=== PATIENT | female | born 1990 | race Caucasian/White ===

== ENCOUNTER 2018-09-07 12:21 | Inpatient (IN) | payer MEDICAID ==
[2018-09-07 13:12] LABS: PLATELET COUNT 383 10^3/uL (150-400)
--- NOTE | 2018-09-07 13:33 | EDPHY ---
H & P Stated Complaint: Depression, evelyn, passive thoughts of si Time Seen by Provider: 09/07/18 13:00 HPI/ROS: CHIEF COMPLAINT: Depression, suicidal thoughts, increasing insomnia history of bipolar mood disorder HISTORY OF PRESENT ILLNESS: Patient has a history of bipolar mood disorder. She has been off medications for the past year. She is currently not under the care of a therapist. She had been on Depakote, trazodone and Ambien. She presents to the ED with increasing suicidal thoughts, depression and insomnia. The patient does report symptoms of evelyn. She does not feel as if she can contract for safety and does feel she needs to be admitted for psychiatric stabilization. The patient denies any acute medical complaints. She reports occasional marijuana use but denies additional drug or alcohol consumption. REVIEW OF SYSTEMS: A comprehensive 10 point review of systems is otherwise negative aside from elements mentioned in the history of present illness. Source: Patient Exam Limitations: No limitations - Personal History LMP (Females 10-55): Hysterectomy Current Tetanus Diphtheria and Acellular Pertussis (TDAP): Yes Tetanus Vaccine Date: 2008 - Medical/Surgical History Hx Asthma: Yes Hx Chronic Respiratory Disease: No Hx Diabetes: No Hx Cardiac Disease: No Hx Renal Disease: No Hx Cirrhosis: No Hx Alcoholism: No Hx HIV/AIDS: No Hx Splenectomy or Spleen Trauma: No Other PMH: MEDICAL- BIPOLAR, SUICIDE ATTEMPT 07/21, OD ON COCAINE AND ADDERAL 05/13 AND "HAD TO BE RESUCITATED 4X'S". SURIGCAL- CSECTION - Social History Smoking Status: Current every day smoker - Physical Exam Exam: General Appearance: Alert, no distress Eyes: Pupils equal and round no pallor or injection ENT, Mouth: Mucous membranes moist Respiratory: There are no retractions, lungs are clear to auscultation Cardiovascular: Regular rate and rhythm Gastrointestinal: Abdomen is soft and nontender, no masses, bowel sounds normal Neurological: A&O, normal motor function, normal sensory exam, normal cranial nerves Skin: Warm and dry, no rashes Musculoskeletal: Neck is supple nontender Extremities: symmetrical, full range of motion Psychiatric: Cooperative, normal thought process, endorses suicidal ideation, endorses depression. Constitutional: Initial Vital Signs Temperature (C) 36.9 C 09/07/18 12:23 Heart Rate 99 09/07/18 12:23 Respiratory Rate 16 05/01/19 12:23 Blood Pressure 125/76 H 09/07/18 12:23 O2 Sat (%) 98 09/07/18 12:23 O2 Delivery Mode Room Air Allergies/Adverse Reactions: lamotrigine [From Lamictal] Allergy (Verified 09/07/18 12:29) venom-honey bee [bee venom (honey bee)] Allergy (Verified 04/06/13 17:38) Home Medications: Medication Instructions Recorded Willoughby Carbonate [Willoughby 300 mg PO HS 04/06/13 Carbonate Cap 300 mg (RX)] Willoughby Carbonate [Willoughby 600 mg PO DAILY 04/06/13 Carbonate Cap 300 mg (RX)] Zolpidem Tartrate [Ambien 5MG (RX)] 10 mg PO HS PRN 04/06/13 Hydrocodone/APAP 5/325 [[place] 1 - 2 tab PO Q4PRN #20 tab 08/05/13 5/325 (*)] Hydrocodone/APAP 5/325 [[place] 1 - 2 each PO Q4-6PRN PRN #20 tab 08/15/13 5/325] Metformin HCl 08/15/13 Zyprexa 08/15/13 Medical Decision Making - Diagnostics Imaging Results: Pelvic ultrasound: Intrauterine is noted. Too early to detect cardiac activity which is typically not seen until 7 weeks. ED Course/Re-evaluation: Patient presents to the ED with worsening symptoms of depression, evelyn and suicidal ideation. The patient was noted to be incidentally . An IUP was confirmed on pelvic ultrasound. The patient was medically cleared for psychiatric evaluation. She was placed on a 72 hr mental health hold. The patient was evaluated by Mental Health and they are making arrangements for inpatient psychiatric hospitalization at [facility]. The patient has remained common cooperative throughout her stay in the emergency department. Differential Diagnosis: Differential diagnosis considered includes depression, bipolar mood disorder, suicidal ideation - Data Points Laboratory Results: Laboratory Results 09/07/18 12:45 09/07/18 12:45 09/07/18 09/07/18 09/07/18 12:45 12:45 12:45 WBC RBC Hgb Hct MCV MCH MCHC RDW Plt Count MPV Neut % (Auto) Lymph % (Auto) Clare % (Auto) Eos % (Auto) Baso % (Auto) Nucleat RBC Rel Count Absolute Neuts (auto) Absolute Lymphs (auto) Absolute Monos (auto) Absolute Eos (auto) Absolute Basos (auto) Absolute Nucleated RBC Immature Gran % Immature Gran # Sodium Potassium Chloride Carbon Dioxide Anion Gap BUN Creatinine Estimated GFR Glucose Calcium Beta HCG, Qual POSITIVE Beta HCG, Quant 4183.70 mIU/mL H mIU/mL (0.00-4.83) Urine Opiates Screen NEGATIVE (NEGATIVE) Urine Barbiturates NEGATIVE (NEGATIVE) Ur Phencyclidine Scrn NEGATIVE (NEGATIVE) Ur Amphetamine Screen NEGATIVE (NEGATIVE) U Benzodiazepines Scrn NEGATIVE (NEGATIVE) Urine Cocaine Screen NEGATIVE (NEGATIVE) U Marijuana (THC) Screen NON-NEGATIVE H (NEGATIVE) 09/07/18 09/07/18 12:45 12:45 WBC 8.98 10^3/uL 10^3/uL (3.80-9.50) RBC 4.76 10^6/uL 10^6/uL (4.18-5.33) Hgb 14.1 g/dL g/dL (12.6-16.3) Hct 42.6 % % (38.0-47.0) MCV 89.5 fL fL (81.5-99.8) MCH 29.6 pg pg (27.9-34.1) MCHC 33.1 g/dL g/dL (32.4-36.7) RDW 13.5 % % (11.5-15.2) Plt Count 383 10^3/uL 10^3/uL (150-400) MPV 10.1 fL fL (8.7-11.7) Neut % (Auto) 53.0 % % (39.3-74.2) Lymph % (Auto) 37.9 % % (15.0-45.0) Clare % (Auto) 5.5 % % (4.5-13.0) Eos % (Auto) 2.8 % % (0.6-7.6) Baso % (Auto) 0.4 % % (0.3-1.7) Nucleat RBC Rel Count 0.0 % % (0.0-0.2) Absolute Neuts (auto) 4.76 10^3/uL 10^3/uL (1.70-6.50) Absolute Lymphs (auto) 3.40 10^3/uL H 10^3/uL (1.00-3.00) Absolute Monos (auto) 0.49 10^3/uL 10^3/uL (0.30-0.80) Absolute Eos (auto) 0.25 10^3/uL 10^3/uL (0.03-0.40) Absolute Basos (auto) 0.04 10^3/uL 10^3/uL (0.02-0.10) Absolute Nucleated RBC 0.00 10^3/uL 10^3/uL (0-0.01) Immature Gran % 0.4 % % (0.0-1.1) Immature Gran # 0.04 10^3/uL 10^3/uL (0.00-0.10) Sodium 140 mEq/L mEq/L (135-145) Potassium 4.0 mEq/L mEq/L (3.5-5.2) Chloride 108 mEq/L mEq/L (97-110) Carbon Dioxide 23 mEq/l mEq/l (22-31) Anion Gap 9 mEq/L mEq/L (6-14) BUN 10 mg/dL mg/dL (7-23) Creatinine 0.6 mg/dL mg/dL (0.6-1.0) Estimated GFR > 60 Glucose 100 mg/dL mg/dL (70-100) Calcium 9.3 mg/dL mg/dL (8.5-10.4) Beta HCG, Qual Beta HCG, Quant Urine Opiates Screen Urine Barbiturates Ur Phencyclidine Scrn Ur Amphetamine Screen U Benzodiazepines Scrn Urine Cocaine Screen U Marijuana (THC) Screen Departure - Departure Disposition: [facility] IP Clinical Impression: Suicidal ideation, Intrauterine Condition: Good Referrals: NONE *PRIMARY CARE P,. [Primary Care Provider] - As per Instructions
--- NOTE | 2018-09-07 16:27 | ASMTTCLDSP ---
TLC Discharge Disposition Disposition: Answers: Admit Disposition Notes: Notes: In consultation with [facility] ED Srinath Sosa MD, and on-call clinician, Cristi Suarez APN both concurred that pt appears to meet 27-65 criteria requiring psychiatric hospitalization as pt appears to be at risk of harm to self due to a mental illness condition. Pt was read the Patient Rights and Responsibilities Statement on 09/07/18 at 15:50, original placed on chart, and was given photocopy of Rights. Pt (signed the Patient Rights. Pt was given the 3N prohibited belongings list while in the ED. Was patient given the Answers: Yes Inpatient Behavioral Health Prohibited Belongings List while in the ED? For inpatient Cristi Suarez APN admission, the following psychiatrist agreed to accept patient for admission to Behavioral Health ([facility]): Type of Hold: Answers: M1/72-hour Hold Hold initiated by: Answers: ED Physician Date Signed: 09/07/2018 04:26 PM Electronically Signed By:Sherie Snell
--- NOTE | 2018-09-07 16:40 | ASMTTLCEVL ---
TLC Evaluation - Basic Information Evaluation Start Date and 09/07/2018 02:00 PM Time Hospital Status Answers: M1 Hold 72-hr M1 Hold Start Date 09/07/2018 04:00 PM and Time Patient statement Notes: "I know that I have not been sleeping and feeling quite manic. I know if I let this go on too long, I have become suicidal in the past. I don't want it to come to that. I've taken medications in the past but my Psychiatrist and myself agreed that I could stop taking them. I have been off meds for 3 years but feel I would benefit from taking them again." Narrative Notes: Pt is a 27 year old, female who self presented to the [facility] ED due to experiencing manic symptoms with passive SI and auditory hallucinations. Pt reported if I didn't do something I would either attempt suicide or go completely psychotic. "I could feel I was getting worse." Diagnosis History Notes: Pt has a hx of bipolar mixed disorder and polysubstance abuse. Past hx indicated pt has a hx of wide mood swings since age 16. She was hospitalized at [facility] at the age of 16 following a suicide attempt when she cut her wrists. She was therefore diagnosed with bipolar disorder at the age of 16. Pt did not apparently start active regular medications for bipolar disorder until May of 2012. Prior suicide attempts Notes: Pt has a hx of at least 3 prior suicide attempts. Last attempt was 3 years ago when pt took an overdose of Rains ending up in an ICU for 5 days followed by a 1 week inpt stay. Prior hospitalizations Notes: Pt has a hx of about 5-6 inpt hospitalizations. Last inpt stay was in [place] for a manic episode. Pt was hospitalized on 3 occasions at [facility] in 2012. Treatment Responses Notes: Pt reported she has had times of only minimal symptoms even when not taking her medications. History of violence Notes: Pt denied any hx of being a victim of violence or violence towards others. Therapist: No current therapist. Psychiatrist: No current Psychiatrist. Medications (name, dosage, route, freq uency) Notes: Only current prescribed medication is for her asthma. Allergies/Reaction Notes: Pt says she has a bad reaction to Lamictal because in the past it caused her to go into a severe manic episode. Sleep Notes: Pt reported inability to sleep especially over the past week. Earlier this week pt went 3 days without sleeping. Pt said she managed to sleep about 1-2 hours over the past 2 nights. "I needed to smoke a lot of marijuana to even get a few hours of sleep. Pt reported feeling very tired but due to her racing thoughts she was unable to sleep. Appetite Notes: Pt described her appetite as varied. She went a few days this week without eating and over the past 2 days she was eating excessively. Medical/Surgical history Notes: Pt has a hx of asthma. She per lab tests in the ED tested positive for . Substance use history (frequency, intensity, his tory, duration) Notes: Pt has an extensive past hx of substance abuse. She started using alcohol and drugs at the age of 18. Previously she had an addiction to cocaine which at one point she was using daily back in 2012. Family composition Notes: Pt is the oldest child with 4 younger brothers. She had 3 children: a 13 year old daughter who was adopted out, a 9 year old son and a 7 year old son who both are under the custody of pt's mother. Pt about 1 year ago. She is currently in a relationship. Need for family Answers: No participation in patient's care Family psychiatric/substance abuse history Notes: Pt stated there is a strong family hx on both sides of her family of untreated depression and anxiety. Pt reported a strong family hx of alcoholism on the paternal side of the family. Developmental history Notes: Pt grew up in [place]. Pt stated she was given a lot of responsibility of raising her younger brothers since both of her parents worked a lot. Pt denied any hx of physical, emotional or sexual abuse during her childhood. Abuse concerns Answers: None Marital status/children Notes: Pt has been for 1 year. She has 3 children but she is not raising her children. Living situation Notes: Pt is living with friends who she described as supportive. Sexual history/orientation Notes: Heterosexual, currently active. Peer support/family strengths Notes: Pt stated she feels as if she has several people in her life who are supportive of her. Education level/history Notes: Pt had reported completing several semesters at [employer] and is just a few credits short of completing her degree. Work history Notes: Pt is currently on a leave from her job. 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 Notes: None Legal Notes: Pt denied any legal problems. Mandaen/Spiritual Notes: Pt said she was raised Alevism. She describes herself as spiritual. Leisure Notes: Pt enjoys hanging out with her dog, music and keeping to herself. Collateral Notes: Collateral inform was obtained from previous reports. Patient's strengths Answers: Artistic/Creative/Musical (Please select at least TWO strengths): Good Friend to Others Honest Insightful Intelligent Supportive/Compassionate Willingness TLC Evaluation - Mental Status Exam Appearance: Answers: Disheveled Eye Contact: Answers: Good/Direct Mood: Answers: Depressed Sad Affect: Answers: Anxious Apathetic Flat Nervous Sad Behavior: Answers: Cooperative Fatigued Fearful Speech: Answers: Relevant Logical Clear Coherent Thought Process: Answers: Oriented Alert Racing Thoughts Insight: Answers: Fair Judgement: Answers: Fair Manic Signs/Symptoms Answers: Distractibility Impulsivity Irritability Mood Swings Racing Thoughts Depression Answers: Difficulty Concentrating Signs/Symptoms: Diminished Pleasure Hopelessness Psychomotor Agitation Sad Mood Withdrawn Worthlessness Anxiety Signs/Symptoms Answers: Generalized Anxiety Hallucinations: Answers: Auditory Delusions: Answers: Paranoid Ideation Current Stage of Change Answers: Action Pt reported to have Answers: Yes suicidal/self-injuring ideation/behavior? Pt reported to be making Answers: No suicidal/self-injuring threats? Pt reported to have Answers: No aggression/assault ideation/behavior? Pt reported to be making Answers: No aggression/assault threats? Ideation/behavior is Answers: No chronic? Patient has a specific Answers: Yes plan? Pt has access to means to Answers: Yes execute the plan? Ideation involves Answers: Yes serious/lethal intent? Ideation has Answers: No delusional/hallucinatory content? History of Answers: Yes suicidal/self-injuring ideation, behavior, or threats? History of Answers: No aggressive/assaultive ideation, behavior, or threats? History of serious Answers: No physical harm to self/others while in treatment setting? [facility] Evaluation - Suicide/Homicide Risk Suicide Risk Factors: Answers: Agitation Alcohol/Heavy Drug Use Anxiety/Panic, Severe Bipolar Disorder Calm After Agitated Depression Financial Difficulties Flat Affect Global Insomnia Impulsivity Major Depression Organized Lethal Plan Prior Suicide Attempt(s) Psychotic Disorder Rapid Mood Shifts Unstable Living Situation Homicide/violence risk Answers: None factors: Current Suicidal Answers: Yes Ideation? Current Suicidal Ideation Answers: Yes in the Past 48 Hours? Current Suicidal Ideation Answers: No in the Past Month? Current Suicidal Answers: No Ideation, Worst Ever? Suicide Internal Answers: Other Notes: Does not want to follow Protective Factors: through with a plan Suicide External Answers: Responsibility to Pets Protective Factors: Ranking of patient's Answers: Severe suicidal risk: Ranking of patient's Answers: Low homicidal risk: TLC Evaluation - Wrap-up BDI Total Score: 37 BDI Question #2 Score: 1 BDI Question #9 Score: 1 BSS Total Score: 10 AXIS I Diagnosis (include DSM-V and ICD-10 codes), must also be entered in [employer], which is the source of truth. Notes: Bipolar I Disorder, with Psychotic Features 296.44 (F31.5) Cannabis Use Disorder, moderate 304.30 (F12.20) In consultation with [facility] ED Srinath Sosa MD, and on-call clinician, Cristi Suarez APN both concurred that pt appears to meet 27-65 criteria requiring psychiatric hospitalization as pt appears to be at risk of harm to self due to a mental illness condition. Pt was read the Patient Rights and Responsibilities Statement on 09/07/18 at 15:50, original placed on chart, and was given photocopy of Rights. Pt (signed the Patient Rights. Pt was given the 3N prohibited belongings list while in the ED. Evaluation End Date and 09/07/2018 04:35 PM Time (HH:MARY): Date Signed: 09/07/2018 04:39 PM Electronically Signed By:Sherie Snell
--- NOTE | 2018-09-07 18:01 | PDCONSULT ---
Community Theater Actor Note: THIS IS A HOSPITALIST HISTORY AND PHYSICAL CC: Suicidal ideation, insomnia, depression HPI: 27-year-old female with history of bipolar 1 presenting to the emergency room with insomnia and increasing thoughts of suicide. She previously was on Depakote, trazodone and Ambien however has not utilizes medications for the past year or more, she does not have a therapist as she says she has been moving back and forth between [place] and here and going through a divorce. She tells me for the last couple of days it has been increasingly hard to get a good night's rest averaging to 3 hr per night of sleep which further progresses her depression and she occasionally experiences visual and auditory hallucinations. She reports beginning to feel suicidal however she feels she does not want to commit suicide she is just so happens have these thoughts. She denies the following: Chest pains, palpitations, nausea, vomiting, fevers or chills. Pmx/Psx: Asthma (5 days ago was seen at Urgent Care due to asthma attack and was given Advair), bipolar 1 disease, suicide attempt on July 2013, overdose on cocaine and Adderall on May 2012 had to be resuscitated 4 times, C- section Social: Smokes 1 pack per day 2 days out of the week, this has been reduced a month ago from pack-a-day that she started a year ago, denies alcohol, utilizes cannabis to help with insomnia. Has a boyfriend. She found out today she was and is still trying to process this information and isn't sure how she will tell her boyfriend the news. Family history: Not pertinent Review of systems: All systems reviewed and deemed negative unless noted in HPI. Physical Exam: Constitutional: NAD well-nourished female, cooperative, pleasant reporting "I didn't want to get to the point where it was low depression so I came in." HEENT: PERRLA, EOMI, hearing normal, moist mucous membrane Cardiovascular: S1, s2 heard. No murmurs, rubs, or gallops. tachycardic Respiratory: Diminished lung sounds GI: Active BS, no tenderness or palpable masses /OBYGYN: No bladder fullness or tenderness. + Hcg Musculoskeletal: Full ROM, no pain Neuro: A&Ox3. MANAGER STORE 2-12 intact Psych: Depressed Heme/Lymph: No cervical lymphadenopathy Lab data and imaging reviewed. White blood cell: 8.98, hemoglobin and hematocrit: 14.1 and 42.6, platelet count: 3 8 3, sodium: 140, potassium: 4.0, chloride: 108, carbon dioxide: 23, BUN/Cr: 10/0.6, TSH 1.000, tox screen positive for cannabis, HCG positive with obstetric ultrasound confirming early gestation of estimated 6 weeks and 1 day no cardiac activity may be due to 1st trimester imaging. A/P: This is a 27-year-old female with past history of suicide attempts and bipolar 1 disorder presenting to the emergency room with increasingly more depression and insomnia with occasional suicidal ideation, auditory and visual hallucinations. Her vital signs are the following: Blood pressure 125/76, heart rate 99, respirations 16, temperature 36.9 degrees, oxygen saturation room air 98%. She is hemodynamically stable, no medical reasons inhibiting her to transfer to [facility]. #SI/Depression: Transfer to [facility] #Asthma: Recent attack 5 days ago and was given Advair. Do not give prednisone as this can cause evelyn therefore insomnia. Albuterol PRN #: Initiate vitamins. #Tobacco cessation: counseled pt on cessation.
[2018-09-07] MEDS ORDERED: ALBUTEROL 60 PUFFS/8 GM MDI IH PRN ×2 (18:11→20:09)
--- NOTE | 2018-09-07 18:38 | GCON ---
[f rep st] CONSULTATION DATE OF CONSULTATION: 09/07/2018 REASON FOR CONSULTATION: Medical evaluation. CHIEF COMPLAINT: Suicide ideation, anxiety. Pleasant 27-year-old female with bipolar disorder, asthma, PCOS, presenting with insomnia, suicidal ideations, and increased anxiety. She has not been treated with medications in 5 years. She was hospitalized a year ago with evelyn. Was given an antidepressant, which resulted in hypomania and a 3-week hospitalization. Currently, she says she has not slept in the past 4 days due to a steroid inhaler that was started 5 days ago. She just returned from [place] and noticed an increased dry cough, which she attributes to pollen. She has taken prednisone in the past, and it made her manic. Thus, it was not prescribed. She has had thoughts of being worthless and that it would not matter if she was not around. She has no plan. She has been feeling more anxious, but no specific events in the last couple of days. She thinks it is due to the steroids. In the ER, she had positive test confirmed by ultrasound, 6 weeks, 1 day. I evaluated and examined the patient with Lila Connell NP, reviewed her note, and agree with note and assessment and plan except as noted on mine. PHYSICAL EXAM: VITAL SIGNS: Temperature 36.9, blood pressure 125/76. Heart rate is in the 90s, respirations 16, 98% on room air. GENERAL: Overweight, in no acute distress. HEENT: PERRLA. Moist mucous membranes. CV: Regular rate and rhythm. LUNGS: Diminished throughout. No wheezes or crackles. ABDOMEN: Soft, nontender. : No Martinez. MUSCULOSKELETAL: 5/5 upper and lower extremity strength. NEURO: 2 -12 intact. PSYCH: Alert and oriented x3. LABS: WBC 8, hemoglobin 14, hematocrit 42, platelets 383. Sodium 140, potassium 4, chloride 108, carbon dioxide 23, creatinine 0.6, glucose 100, calcium 9.3. Positive beta hCG 4183. OB ultrasound: 6 weeks, 1 day gestation. ASSESSMENT AND PLAN: 1. Suicidal ideations: Does not have a plan. Her symptoms may have been exacerbated by steroid inhaler. Needs to establish care with psychiatrist. Transfer to Behavioral Health for further management. 2. : outpatient followup. Start vitamin. 3. Asthma. No evidence of exacerbation. Resume home inhaler. Avoid steroids in the future. 4. Polycystic ovarian syndrome. Follow up with outpatient Obstetrics/ Gynecology. Thank you for this consultation. Please call if any questions. /[id number]/MODL MTDJose
[2018-09-07] MEDS ORDERED: ACETAMINOPHEN 325 MG TAB PO PRN (21:15)
[2018-09-07] MEDS ORDERED: MAG HYDROX/AL HYDROX/SIMETH 30 ML UDCUP PO PRN (21:15)
[2018-09-07] MEDS ORDERED: LORazepam 0.5 MG TAB PO PRN (21:15)
[2018-09-07] MEDS ORDERED: MAGNESIUM HYDROXIDE 30 ML UDCUP PO PRN (21:15)
[2018-09-07] MEDS ORDERED: NICOTINE POLACRILEX 2 MG GUM B PRN (21:15)
[2018-09-07] MEDS ORDERED: MELATONIN 3 MG TAB PO PRN (21:17)
--- NOTE | 2018-09-08 07:25 | BAPA ---
[f rep st] ADMISSION PSYCHIATRIC ASSESSMENT DATE OF SERVICE: 09/08/2018 CHIEF COMPLAINT: "Wasn't sleeping well for the last 4 days." HISTORY OF PRESENT ILLNESS: From the ED note dated 09/07/2018, patient presented to the emergency department with increasing suicidal thoughts, depression and insomnia. The patient reported she felt as though she could not contract for safety. From the [facility] evaluation dated 09/07/2018, patient was placed on a 72-hour M1 hold with a start date and time of 09/07/2018, at 4 p.m. Patient reported to the [facility] province archivist that her symptoms have been getting much worse, reported that she had been taking medications. The psychiatrist she was seeing in the past agreed with her that she could stop taking them. The patient reports she just feels as though she could not get herself to "get normal." The patient reports she did sleep better last night here at the hospital. The patient reports substance use prior to hospitalization and used marijuana 2 nights ago to "try to knock myself out." The patient reports she currently feels overwhelmed. Reports she found out she is from labs drawn in the emergency room prior to being admitted. The patient reports she has ongoing symptoms of anxiety, however, feels these have been exacerbated by finding out that she is . The patient describes no other psychiatric symptoms. The patient reports no symptoms of evelyn or depression. The patient reports no symptoms of attention deficit hyperactivity disorder, OCD, PTSD, psychosis, or any other symptom of psychiatric disorder. The patient describes no history of abuse. The patient denies current suicidal ideation and reports protective factors or reasons to live as being . The patient denies current homicidal ideation. Denies current self-injurious ideation. The patient reports she is currently not established with a primary care provider or therapist. PAST PSYCHIATRIC HISTORY: Patient describes a history of polysubstance abuse and indicates a history of mood swings since the age of 16. The patient was hospitalized at [facility] at the age of 16 following a suicide attempt. Reports that at that time, she attempted by cutting her wrists. The patient reports history of 3 prior suicide attempts; last attempt was 3 years ago where she took an overdose of lithium, was in the ICU for 5 days, followed by 1 week of inpatient psychiatric hospitalization. The patient reports a history of 5 or 6 inpatient psychiatric hospitalizations. Reports the last inpatient stay was in [place]. The patient has been hospitalized at [facility] 3 times in the past in 2013. ALLERGIES: 1. Lamotrigine. 2. Honey bee venom. CURRENT MEDICATIONS: 1. Tylenol 650 mg p.o. q.4 hours p.r.n. 2. Albuterol 2 puffs IH q.4 hours p.r.n. 3. vitamin 1 each p.o. daily at 0800. PAST MEDICAL HISTORY: The patient's urine test at time of admission is positive. The patient reports no history of neurological conditions including organic brain disease, traumatic brain injury, or concussions. The patient reports no history of major illnesses or major hospitalizations. SOCIAL HISTORY: The patient reports she was born in [place], raised the majority of her life in [place], [place] by her mom and shirley. The patient states she currently resides in [place], [place] with friends. The patient reports meeting all her developmental milestones. Reports no history of learning delays or difficulties. The patient describes her sexual orientation as bisexual. Reports she has currently been in a relationship with her boyfriend for 4 months. The patient reports she has been once for 3 years and 1 year ago next month. The patient reports she has 3 children, a 13- year-old daughter who was adopted, a 9-year-old son and 7-year-old son whom are both under the custody of the patient's mother. SUBSTANCE USE HISTORY: Patient reports a history of significant substance abuse. The patient reported she started using alcohol and drugs at the age of 18. Reports at one point, she was addicted to cocaine and at one point was using cocaine daily in 2012. The patient reports she has not used drugs for several years. Reports she currently does not drink alcohol. Smokes approximately 2 cigarettes per day and has recently been using marijuana for anxiety and sleep. The patient describes no other substance abuse history. SUBSTANCE ABUSE BRIEF INTERVENTION: Brief intervention regarding the risks of cannabis abuse is provided to patient with goal to reduce the risk of harm that could result from the continued use of cannabis, with the general aim to investigate the problem, raise awareness of problem, develop a solution with the patient, recommend a specific change or activity, and motivate the patient toward change. Assess substance abuse behavior and give supportive advice about harm reduction, recommend a reduction in hazardous/at-risk consumption patterns, and facilitate referrals for additional specialized treatment with early breastfeeding care specialist. Intermediate goal is for the patient to quit and attend outpatient substance abuse treatment. Intervention focus on intermediate goals to allow for more immediate success in the treatment process to keep the patient motivated. Review following with patient: Cannabis use risks: Short- term use: impaired short-term memory, impaired motor coordination, altered judgement, in high doses paranoia and psychosis. Long-term use addiction, diminished life satisfaction and achievement, symptoms of chronic bronchitis, and increased risk of chronic psychosis disorders if predisposition to such disorders. In withdrawal anger, aggression irritability, anxiety and nervousness, decreased appetite or weight loss, restlessness, and sleep difficulties with strange dreams. Using marijuana during may impact a baby's development. Use of marijuana may affect a mother's ability to be able to properly care for her baby. OUTPATIENT SUBSTANCE ABUSE TREATMENT: Patient referred to outpatient provider and treatment for continued treatment related to substance abuse. FAMILY PSYCHIATRIC HISTORY: Patient reports no family history of mental illness , no family history of suicide or suicide attempts, and no family history of substance abuse. ADMISSION LABS AND STUDIES: 1. CBC within normal limits except absolute lymphocytes were elevated at 3.40. 2. BMP within normal limits. 3. Hemoglobin A1c is pending. 4. Liver function pending lipid. 5. Lipid panel pending. 6. TSH was 1.000 and within normal limits. 7. Beta HCG qualitative test was positive. 8. Beta HCG quantitative test 4183.70. This is elevated. 9. Toxicology screen negative for THC, negative for all other substances that were screened. MENTAL STATUS EXAM: The patient is a well-nourished female looking stated chronological age. Attire is appropriate and dress is casual. Grooming status is appropriate. Ambulation is independent. Gait is normal and coordinated. Posture is normal and relaxed. Eye contact is appropriate and adequate. Motor activity is appropriate with purposeful, organized, coordinated movements. Attitude is cooperative and friendly. Patient appears attentive and relates well to this interviewer. Language production is spontaneous. Rate, rhythm and volume are normal. Articulation is clear. The patient reports mood as "okay" with congruent affect. The patient's thought process is linear and logical with no loose associations, tangential thought, thought blocking, concrete thinking, or any other signs of formal thought disorder. The patient does not report suicidal or homicidal thoughts, ideas, or plans. The patient denies auditory or visual hallucinations. Patient denies delusions. The patient does not appear to be attending to internal stimuli. The patient is oriented to person, place, time, and situation. The patient's attention and concentration are fair. Patient's insight and judgment are fair. There is no evidence of gross cognitive dysfunction at any point during the interview and no evidence of apparent dysfunction in recent or remote memory noted. DIAGNOSES: Based on the patient's history and current presentation, the patient 's diagnosis is: 1. Generalized anxiety disorder. 2. Adjustment disorder with disturbance of emotions. 3. Cannabis use disorder, moderate. FORMULATION: The patient is a 27-year-old female, currently not , in relationship with her boyfriend for 4 months. She is currently unemployed, living in [place], [place], with her friends who presents to the hospital involuntarily due to risk to harm herself and is currently on an M1 hold. The patient requires continued inpatient care because of recent suicidal ideation. The patient presents with problems of increased anxiety leading to the inability to sleep for several days. The patient is a high suicide safety risk due to recent suicidal ideation and history of suicidal ideation with attempts. Protective factors while hospitalized include ongoing safety checks, active involvement in treatment and support from our treatment team. The patient could benefit from inpatient hospitalization for safety, crisis stabilization, and medication evaluation. PLAN: 1. Medications: After reviewing options, risks and benefits with the patient, the patient agrees to continue current medications listed above. No other medication changes at this time as more time is needed to determine ongoing tolerability and efficacy. Plan is to continue to observe patient for response and side effects from medications, and ongoing monitoring and evaluation. 2. Review with patient informed consent and recommendations for psychotropic medication treatment listed below 3. Labs: no additional labs at this time 4. Therapy: continue milieu and group therapy 5. Further investigation including gathering information from patients relatives and review of past case records to inform treatment plan. 6. Safety/Wellness plan and follow-up outpatient appointments to be established prior to discharge. Next steps are for patient to meet with rn critical care to plan a safe discharge plan and establish outpatient services for ongoing treatment. 7. Confer with inpatient treatment team regarding treatment plan. 8. Address psychosocial stressors by meeting with early breastfeeding care specialist to establish discharge plan including referrals for outpatient services. 9. Legal status: M1 10. Consider discharge on Wednesday if patient is in stable condition, safe, and has a safe discharge plan. 11. Substance abuse interventions: cannabis ESTIMATED LENGTH OF STAY: 1-3 days PSYCHOTROPIC MEDICATION TREATMENT INFORMED CONSENT and RECOMMENDATIONS: Review nature of condition, diagnosis, and prognosis. Review nature and purpose of psychotropic medication treatment. Review type of psychotropic medications being ordered. Review risk and benefits of psychotropic medication treatment. Review probable length of time will need to take medications. Review risk and benefits of not undergoing psychotropic medication treatment. Review alternative treatments to psychotropic medications. Review psychotropic medications contraindications, drug-drug interactions, side effects, and importance of reporting any side effects to a psychiatric provider or nurse during inpatient hospitalization, and upon discharge to patients psychiatric outpatient provider, primary care provider, or other health hospice care consultant. Review importance of asking a nurse, psychiatric provider, or primary care provider any questions or problems concerning the psychotropic medications. Verify patient understands the information that has been provided, and understands, accepts, and agrees to psychotropic medications. Review patients safety plan and importance of patient to communicate to staff while hospitalized if patient is ever a danger to self/others, or unable to care for self, and upon discharge, the importance for patient to contact [facility] or [facility], or go to the nearest emergency room, if patient is ever a danger to self/others, or unable to care for self. Recommend that upon discharge patient establish medication management treatment with a psychiatric provider, establishes routine therapy appointments, and follow-up with primary care provider. Verify patient understands and agrees to these recommendations. /[id number]/MODL MTDD
[2018-09-08] MEDS ORDERED: PRENATAL VIT 1 EACH TAB PO SCH (08:00)
[2018-09-08] MEDS: PRENATAL VIT 1 EACH TAB PO SCH (08:41)
--- NOTE | 2018-09-08 14:56 | ASMTBHMTP ---
Master Treatment Plan Master Treatment Plan Answers: Mood Instability with for: Psychosis Date: 09/08/2018 Diagnosis on Admission: Bipolar I Disorder 296.44 (F31.5) Expected length of stay: 3 Reason for admission: Notes: The patient reported learning that she was six weeks during her [facility] ED visit. The patient is no longer interested in restarting medication due to . The child's father is located in [place]. The patient reported her reason for admission was "extreme evelyn; lack of sleep and racing thoughts." The patient reported recent AH "talking in the distance." She stated she received one hour of sleep over last several days and is "completely exhausted" including having tried "Tylenol, edibles (thc), and sleep music." She stated, "My brain just won't shut up!" The patient has a hx of substance use/abuse including recently restarting thc use. Patient's stated presenting problems: Notes: The patient has three children; no custody. The patient's mother has custody of two of her children and she gave one up for adoption. The patient was under the impression that she would have a difficulty becoming due to polycystic ovary syndrome. 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 The patient reported mh stability prior to admission. The patient reported a hx of employment issues including inability to maintain employment for longer than 60 days and interest in SSDI. Patient's goals for treatment: Notes: The patient reported needing "sleep," "quiet the mind," therapy, and establishing outpatient providers. Patient's strengths: Notes: The patient stated, "I'm social." Identify supports outside of hospital: Notes: The patient is supported by her boyfriend and peers. She denied family support. Discharge criteria: Notes: Patient will demonstrate more stable mood and decreased suicidal ideation by discharge. Initial disposition plan/considerations: Notes: The patient will discharge to her friend's home where she is currently staying, her routine, and follow up care. Master Treatment Plan Required Signatures Psychiatrist signature: Answers: JENNIEFR Coburn: RN on-shift signature: Answers: RN: Patient signature: Answers: Patient: Date Signed: 09/08/2018 02:56 PM Electronically Signed By:Aniya Tay
--- NOTE | 2018-09-08 18:16 | PDMN ---
Medical Necessity Medical necessity: Pt meets IP criteria per & [facility] B-002-IP; est los >2 mn for eval/tx of generalized anxiety disorder; on M1 hold due to risk of harm to herself; admit for further monitoring, safety, crisis stabilization & med management; per H&P & order 09/07/18
[2018-09-09 07:00] VITALS: BP 117/59
[2018-09-09] MEDS: PRENATAL VIT 1 EACH TAB PO SCH (08:22)
--- NOTE | 2018-09-09 09:49 | BDS ---
[f rep st] BEHAVIORAL HEALTH DISCHARGE SUMMARY REASON FOR ADMISSION: From the ED note dated 09/07/2018, the patient presented to the emergency room with increasing suicidal thoughts, depression and insomnia. The patient was admitted involuntarily and on an M1 hold due to being a danger to herself. The patient was admitted for safety, crisis stabilization, and medication management. ADMITTING DIAGNOSES: 1. Generalized anxiety disorder. 2. Adjustment disorder with disturbance of emotion. 3. Cannabis use disorder, moderate dependence. ADMISSION PHYSICAL EXAM: Patient was seen on 09/07/2018, for history and physical for medical clearance for inpatient psychiatric hospitalization and treatment. Patient was medically cleared for inpatient psychiatric hospitalization and treatment. For further details, please refer to consultation documents dated 09/07/2018. ADMISSION LABS: 1. CBC within normal limits except absolute lymphocytes were elevated at 3.40. 2. BMP within normal limits. 3. Hemoglobin A1c within normal limits at 5.2. 4. Liver function within normal limits. 5. Lipid panel within normal limits except triglycerides were elevated at 169, cholesterol elevated at 201, cholesterol risk factor elevated at 1.8, LDL cholesterol calculated elevated at 133, LDL risk factor elevated at 1.4, VLDL cholesterol elevated at 34, non-HDL cholesterol elevated at 167, HDL cholesterol low at 34, LDL/HDL ratio elevated at 3.92, and cholesterol/HDL ratio was elevated at 5.91. 6. TSH within normal limits at 1.000. 7. Beta HCG qualitative test positive. 8. Beta HCG quantitative elevated at 4183.70. 9. Toxicology screen non-negative for THC, negative for all the other substances that were screen. MAJOR PROCEDURES OR TESTS: None. HOSPITAL COURSE: The most prominent symptoms and behaviors while the patient was here were reports of moderate anxiety and depression. Treatment modalities utilized were milieu and group therapy. Patient has improved considerably with no signs of psychiatric symptoms and no psychiatric symptoms expressed. Patient reports she has improved since admission, states to be in stable condition, feels safe to discharge, and she contracts for safety. Patients response to treatment was good. There were no adverse or unexpected results of treatment. The patient was safe throughout stay, active in treatment, engaged in groups, and was appropriate with staff. Patient met with treatment team prior to discharge to assess readiness to discharge and review discharge plan. The treatment team consensus is the patient in stable condition, has a safe discharge plan, and is ready to discharge today. CONDITION AT DISCHARGE: Patient is in stable condition and is no longer a danger to self or others, and is not gravely disabled due to mental illness. Patient is no longer in need of inpatient level of care, and can be safely and effectively treated within the community. The patients level of risk at time of discharge is low. MSE: The patient is casually dressed and with good hygiene , and looks stated age. Patient is sitting, posture is upright, and position is relaxed. Patient appears awake, alert, and responds appropriately and reasonably during interview. Patient is engaged, relates well to interviewer, and emotional facial expression is appropriate to situation and changes appropriately with topic. Patient is cooperative, makes comfortable eye contact , and movements are voluntary, deliberate, coordinated, and smooth and even with no inappropriate movements. Patient makes laryngeal sounds effortlessly and shares conversation appropriately; pace of conversation is appropriate, and stream of talking is fluent; articulation is clear and understandable; word choice is effortless and appropriate for education level; completes sentences, occasionally pausing to think; rate and volume are appropriate for interview and setting. Patient reports mood as euthymic. Patients affect is stable with full variable range, congruent with mood, and appropriate to speech and circumstances. Patient has linear and logical thinking, with no loose associations, tangential thought, thought blocking, concrete thinking, or any other signs of formal thought disorder. Patient denies suicidal and homicidal ideation, and denies hallucinations and delusions. Patient appears to be a reliable historian with sound judgement and good insight into current condition. Patient has no apparent dysfunction in recent or remote memory noted , and no evidence of gross cognitive dysfunction noted at any point during the interview. DISCHARGE DIAGNOSES: 1. Generalized anxiety disorder. 2. Adjustment disorder with disturbance of emotion. 3. Cannabis use disorder, moderate dependence. CURRENT MEDICATIONS: The patient reports preference to continue outpatient medications as follows: 1. vitamin 1 each daily at 8:00 a.m. 2. Albuterol 2 puffs inhaled q.4 hours p.r.n. for shortness of breath, dyspnea. The patient requests no prescriptions for medications at time of discharge. These medications were ordered for patient during her hospitalization by hospitalist when seen by hospitalist for H&P consult. DISPOSITION: Patient left hospital independently and voluntarily and plans to return to her home in [place], [place]. FOLLOWUP: coordinator mining products reports the appropriate outpatient follow-up services have been established and outpatient appointments have been scheduled. The patient received written instructions with times and dates of outpatient follow-up appointments. LEGAL COURSE: The patient was admitted on an M1 hold for involuntary inpatient psychiatric hospitalization and treatment. The patient discharged today independently and voluntarily. ATTITUDE AT TIME OF DISCHARGE: The patients attitude was positive at time of discharge, and patient reports looking forward to discharging today. The patient reports she feels safe to discharge, is no longer a danger to herself or others, is in stable condition, and contracts for safety. LABS AND RADIOLOGY STUDIES: There were no pending labs or studies at time of discharge. ADVANCE DIRECTIVES: There were no advance directives on file, and the patient was full code during this hospitalization. /[id number]/MODL MTDD
--- NOTE | 2018-09-09 15:27 | ASMTCMCOM ---
CM Note CM Note Notes: The patient participated in clinical treatment team rounds. She was engaged and appropriate. The patient is no longer interested in restarting medication due to ; she discussed benefits/risks with provider. The patient acknowledged as an as a protective factor; providing motivation to live, etc. Date Signed: 09/09/2018 03:25 PM Electronically Signed By:Aniya Tay
== END 2018-09-09 12:05 | disposition home or self-care (01) | DRG 756 ==
LOC: BBEH 19:02
PROVIDERS: ADMIT Registered Nurse; ATTEND Registered Nurse
DX: F41.1 Generalized anxiety disorder (principal); E28.2 Polycystic ovarian syndrome; Z33.1 Pregnant state, incidental; F43.25 Adjustment disorder with mixed disturbance of emotions and conduct; F12.259 Cannabis dependence with psychotic disorder, unspecified; J45.909 Unspecified asthma, uncomplicated; Z72.0 Tobacco use
CPT/HCPCS: 80305